=== PATIENT | male | born 1985 | race African-American/Black ===

== ENCOUNTER 2021-06-29 17:34 | Emergency (ER) | payer SELFPAY ==
--- OUTSIDE RECORDS SUMMARY | 2021-06-29 17:38 | XMS REPORT | Continuity of Care Document ---
:1985 Author Organization [facility] t Address [facility] [address] [place] [address] Care Team Providers Name Role Phone Unavailable Unavailable Unavailable Problems Condition Condition Condition Status Onset Resolution Last Treating Co mments Source Name Details Category Date Date Treatment Clinician Date Strain of Strain of Problem Active [facility] neck Neck 6-02 da muscle Muscle 00:00: Medical 00 Group Allergies, Adverse Reactions, Alerts This patient has no known allergies or adverse reactions. Social History Smoking Status Start Date Stop Date Source Former Smoker [facility] Medications Ordered Filled Start Stop Current Ordering Indication Dosage Frequency Signature Comments Components Source Medication Medication Date Date Medication? Clinician (SIG) Name Name Augmentin Augmentin No 1 Q12H Augmentin [facility] 875 mg-125 875 mg-125 875 mg-125 da mg tablet mg tablet mg tablet Medical Take 1 Take 1 Take 1 Group tablet tablet tablet every 12 every 12 every 12 hours by hours by hours by oral route oral route oral route for 10 for 10 for 10 days. take days. take days. take with food with food with food cyclobenzap cyclobenzap No cyclobenza [facility] rine 10 mg rine 10 mg carlos 10 da tablet TAKE tablet TAKE mg tablet Medical 1 TABLET BY 1 TABLET BY TAKE 1 Group MOUTH THREE MOUTH THREE TABLET BY TIMES DAILY TIMES DAILY MOUTH NEEDED NEEDED THREE TIMES DAILY NEEDED diclofenac diclofenac No diclofenac [facility] sodium 75 sodium 75 sodium 75 da mg mg mg Medical tablet,andrea tablet,andrea tablet,del Group yed release yed release ayed TAKE 1 TAKE 1 release TABLET BY TABLET BY TAKE 1 MOUTH TWICE MOUTH TWICE TABLET BY DAILY DAILY MOUTH TWICE DAILY mupirocin 2 mupirocin 2 No mupirocin [facility] % topical % topical 2 % da ointment ointment topical Medi marquita APPLY A APPLY A ointment Group SMALL SMALL APPLY A AMOUNT TO AMOUNT TO SMALL THE THE AMOUNT TO AFFECTED AFFECTED THE AREA BY AREA BY AFFECTED TOPICAL TOPICAL AREA BY ROUTE 2 ROUTE 2 TOPICAL TIMES PER TIMES PER ROUTE 2 DAY DAY TIMES PER DAY naproxen naproxen No naproxen [facility] agor 500 mg 500 mg 500 mg da tablet TAKE tablet TAKE tablet Medical 1 TABLET BY 1 TABLET BY TAKE 1 Group MOUTH TWICE MOUTH TWICE TABLET BY DAILY FOR 5 DAILY FOR 5 MOUTH DAYS DAYS TWICE DAILY FOR 5 DAYS Immunizations Ordered Immunization Filled Immunization Date Status Commen Source Name Name Hep A, adult Hep A, adult 2019-08-22 Completed [facility] 12:33:00 [facility] Hep A, adult Hep A, adult 2018-12-20 Completed [facility] 10:30:00 [facility] Tdap Tdap 2018-12-20 Completed [facility] 10:30:00 [facility] Vital Signs Vital Name Observation Time Observation Value Comments Source BP Diastolic 2021-06-13 00:00:00 96 mm[Hg] [facility] Height 2021-06-13 00:00:00 70 [in_i] [facility] BMI (Body Mass 2021-06-13 00:00:00 36.7 kg/m2 [facility] BP Systolic 2021-06-13 00:00:00 147 mm[Hg] [facility] Body Weight 2021-06-13 00:00:00 4096 [oz_av] [facility] BP Diastolic 2021-05-12 00:00:00 87 mm[Hg] [facility] Height 2021-05-12 00:00:00 70 [in_i] [facility] BMI (Body Mass 2021-05-12 00:00:00 36.7 kg/m2 [facility] BP Systolic 2021-05-12 00:00:00 129 mm[Hg] [facility] Body Weight 2021-05-12 00:00:00 4096 [oz_av] [facility] BP Diastolic 2021-04-30 00:00:00 88 mm[Hg] [facility] Height 2021-04-30 00:00:00 70 [in_i] [facility] BMI (Body Mass 2021-04-30 00:00:00 36.7 kg/m2 [facility] BP Systolic 2021-04-30 00:00:00 130 mm[Hg] [facility] Body Weight 2021-04-30 00:00:00 4096 [oz_av] [facility] BP Diastolic 2021-04-15 00:00:00 89 mm[Hg] [facility] Height 2021-04-15 00:00:00 70 [in_i] [facility] BMI (Body Mass 2021-04-15 00:00:00 36 kg/m2 [facility] BP Systolic 2021-04-15 00:00:00 138 mm[Hg] [facility] Body Weight 2021-04-15 00:00:00 4011.2 [oz_av] [facility] BP Diastolic 2021-03-26 00:00:00 89 mm[Hg] [facility] Height 2021-03-26 00:00:00 70 [in_i] [facility] BMI (Body Mass 2021-03-26 00:00:00 35.9 kg/m2 [facility] BP Systolic 2021-03-26 00:00:00 130 mm[Hg] [facility] Body Weight 2021-03-26 00:00:00 4000 [oz_av] [facility] BMI (Body Mass 2021-03-21 00:00:00 36.3 kg/m2 [facility] BP Systolic 2021-03-21 00:00:00 148 mm[Hg] [facility] Body Weight 2021-03-21 00:00:00 4050 [oz_av] [facility] BP Diastolic 2021-03-21 00:00:00 98 mm[Hg] [facility] Height 2021-03-21 00:00:00 70 [in_i] [facility] Procedures Procedure Date / Time Performing Clinician Source Performed XR, toe(s), 2 or more 2021-06-13 00:00:00 [facility] field nurse [facility] unlisted imaging order 2021-05-12 00:00:00 [facility] Should[facility] Plan of Care Planned Activity Planned Date Details Comments Source Diagnostic Test 2021-06-13 uric acid, serum [facility] Pending 00:00:00 or plasma [code = Group uric acid, serum or plasma] Encounters Start End Encounter Admission Attending Care Care Encounter Source Date/Time Date/Time Type Type Clinicians Facility Department ID 2021-06-13 2021-06-13 Chikis BAEZA [place] - [id number] [facility] 00:00:00 00:00:00 Discovery Esther Tony-C: [address] [facility] [place] [facility] [place] - [address], [facility] [place] [address] , Ph. 2021-05-12 2021-05-12 Chikis BAEZA [place] - [id number] M [facility] 00:00:00 00:00:00 Discovery brianna Tony PA-C: [facility] [address], [facility] [address] , Ph. 2021-04-30 2021-04-30 Elder BAEZA [place] - [id number] [facility] 00:00:00 00:00:00 [facility] En[facility] [address] [address] , Ph. 2021-04-15 2021-04-15 Elder BAEZA [place] - [id number] [facility] 00:00:00 00:00:00 MD Enoc: [facility] [address], [facility] [address] , Ph. 2021-03-26 2021-03-26 Elder BAE[place] - [id number] [facility] 00:00:00 00:00:00 MD Enoc: [facility] [address], [facility] [place] [address] , Ph. 2021-03-21 2021-03-21 Karis [facility] [place] - [id number] [facility] 00:00:00 00:00:00 Discovery brianna Carlos DIAGNOSTIC TECH-C: [address] [place] [address] - [address], [facility] [place] [address] , Ph. 2019-08-22 2019-08-22 Maikel [facility] [place] - [id number] M [facility] 00:00:00 00:00:00 Discovery brianna Sheets PA: [address] [place] [address] - [address], [facility] [place] [address] , Ph. 2018-12-20 2018-12-20 Katey [facility] [place] - [id number] M [facility] 00:00:00 00:00:00 Discovery brianna Ni [employer]: [address] [place] [address] - [address], [facility] [place] [place] [address] , Ph. Results This patient has no known results.
[2021-06-29] MEDS ORDERED: LIDOCAINE 1% W/EPI 1:100,000 MDV 20 ML VIAL ONE (20:10)
[2021-06-29] MEDS ORDERED: HYDROCODONE/APAP 7.5/325 MG TAB ONE (20:10)
[2021-06-29] MEDS ORDERED: BUPIVACAINE 0.5% PF 10 ML VIAL ONE (20:10)
--- NOTE | 2021-06-29 20:36 | EDPHYS ---
Physician Documentation [facility] Name: Morro Medel Age: 36 yrs Sex: Male : 1985 Arrival Date: 06/29/2021 Time: 17:37 Bed 27 Private MD: ED Physician Marko Sainz HPI: 06/29 19:40 This 36 yrs old Black Male presents to ER via Ambulatory with complaints of Abscess. cp 19:40 The patient presents with an abscess of the right arm axilla. Description: fluctuant, cp swollen, tense. Onset: The symptoms/episode began/occurred 3 day(s) ago. 19:40 Associated signs and symptoms: Pertinent negatives: discharge, drainage, fever. cp Historical: - Allergies: 18:12 No Known Allergies; aa5 - PMHx: 18:12 None; aa5 - PSHx: 18:12 Appendectomy; aa5 - Immunization history:: Client reports receiving the 1st dose of the Covid vaccine. - Social history:: Smoking status: Patient denies any tobacco usage or history of. ROS: 19:45 Constitutional: Negative for body aches, chills, fever, poor PO intake. cp 19:45 Eyes: Negative for injury, pain, redness, and discharge. cp 19:45 Respiratory: Negative for cough, shortness of breath, wheezing. 19:45 Skin: Positive for abscess, of the right arm axilla. Exam: 19:50 Constitutional: The patient appears in no acute distress, alert, awake, non-toxic, well cp developed, well nourished, uncomfortable. 19:50 Head/Face: Normocephalic, atraumatic. cp 19:50 Chest/axilla: Axilla: abscess, that is moderate in size, of the right axilla, with tenderness, fluctuant. 19:50 Cardiovascular: Rate: normal, Rhythm: regular. 19:50 Respiratory: the patient does not display signs of respiratory distress, Respirations: normal, no use of accessory muscles, no retractions, labored breathing, is not present. 19:50 Neuro: Orientation: to person, place \T\ time. Mentation: is normal. Vital Signs: 18:13 BP 134 / 89; Pulse 72; Resp 18 S; Temp 97.7(TE); Pulse Ox 100% on R/A; Weight 108.86 kg aa5 (R); Height 5 ft. 10 in. (177.80 cm) (R); 20:54 BP 128 / 79; Pulse 84; Resp 18; Pulse Ox 100% on R/A; Pain 0/10; ms4 18:13 Body Mass Index 34.44 (108.86 kg, 177.80 cm) aa5 MDM: 19:20 Patient medically screened. cp 20:35 Data reviewed: vital signs, nurses notes. cp 20:35 Counseling: I had a detailed discussion with the patient and/or guardian regarding: the cp historical points, exam findings, and any diagnostic results supporting the discharge/admit diagnosis, the need for outpatient follow up, a general surgeon, to return to the emergency department if symptoms worsen or persist or if there are any questions or concerns that arise at home. Response to treatment: the patient's symptoms have markedly improved after treatment, and as a result, I will discharge patient. 06/29 19:34 Order name: I\T\D Setup; Complete Time: 19:39 cp 06/29 20:34 Order name: Wound dressing; Complete Time: 20:54 cp Administered Medications: 19:39 Drug: Lidocaine-Epinephrine -1%: (1:100,000) 10 ml Volume: 20 ml; Route: Infiltration; ms4 19:39 Drug: Marcaine (bupivacaine) (0.5 %) 10 ml Volume: 10 ml; Route: Infiltration; ms4 19:54 Drug: Hydrocodone-Acetaminophen (7.5 mg-325 mg) 1 tabs Route: PO; ms4 20:54 Drug: Clindamycin 900 mg Route: IM; Site: left ventrogluteal; ms4 20:54 Drug: Bactrim (trimethoprim-sulfamethoxazole) (160 mg-800 mg (DS) 2 tabs Route: PO; ms4 Disposition: 06/30 07:40 Co-signature as Attending Physician, Marko Sainz MD. mh7 Disposition Summary: 06/29/21 20:36 Discharge Ordered Location: Home cp Problem: new cp Symptoms: have improved cp Condition: Stable cp Diagnosis - Cutaneous abscess of right axilla - right arm cp Followup: cp - With: Isai Romeo MD - When: 1 - 2 days - Reason: Recheck today's complaints Discharge Instructions: - Discharge Summary Sheet cp - Skin Abscess cp - Incision and Drainage cp Forms: - Medication Reconciliation Form cp - Thank You Letter cp - Antibiotic Education cp - Prescription Opioid Use cp Prescriptions: - Clindamycin HCl 300 mg Oral Capsule - take 1 capsule by ORAL route every 6 hours for 10 days; 40 capsule; Refills: 0, cp Product Selection Permitted - Bactrim DS 800-160 mg Oral Tablet - take 1 tablet by ORAL route every 12 hours for 10 days; 20 tablet; Refills: 0, cp Product Selection Permitted - Tramadol 50 mg Oral Tablet - take 1 tablet by ORAL route every 8 hours as needed; 12 tablet; Refills: 0, cp Product Selection Permitted Signatures: Jyothi Olsen RN RN aa5 Juliocesar Coker PA PA Marko Rabago MD MD mh7 Umu Fitzgerald RN RN ms4
--- NOTE | 2021-06-29 20:36 | ER ---
Nurse's Notes [facility] Name: Morro Medel Age: 36 yrs Sex: Male : 1985 Arrival Date: 06/29/2021 Time: 17:37 Bed 27 Private MD: Diagnosis: Cutaneous abscess of right axilla-right arm Presentation: 06/29 18:13 Chief complaint: Patient states: abscess to right axillae that began a few days ago. aa5 Coronavirus screen: At this time, the client does not indicate any symptoms associated with coronavirus-19. Ebola Screen: Patient negative for fever greater than or equal to 101.5 degrees Fahrenheit, and additional compatible Ebola Virus Disease symptoms. Initial Sepsis Screen: Does the patient meet any 2 criteria? No. Patient's initial sepsis screen is negative. Does the patient have a suspected source of infection? No. Patient's initial sepsis screen is negative. Risk Assessment: Do you want to hurt yourself or someone else? Patient reports no desire to harm self or others. Onset of symptoms was June 2021. 18:13 Method Of Arrival: Ambulatory aa5 18:13 Acuity: NORM 4 aa5 Triage Assessment: 18:15 General: Appears in no apparent distress. uncomfortable, Behavior is calm, cooperative, bp appropriate for age. Pain: Complains of pain in right axilla. EENT: No deficits noted. Neuro: No deficits noted. Cardiovascular: No deficits noted. Respiratory: No deficits noted. GI: No signs and/or symptoms were reported involving the gastrointestinal system. : No signs and/or symptoms were reported regarding the genitourinary system. Derm: Abscess located on right axilla. Musculoskeletal: No deficits noted. Historical: - Allergies: 18:12 No Known Allergies; aa5 - PMHx: 18:12 None; aa5 - PSHx: 18:12 Appendectomy; aa5 - Immunization history:: Client reports receiving the 1st dose of the Covid vaccine. - Social history:: Smoking status: Patient denies any tobacco usage or history of. Screenin:15 Abuse screen: Denies threats or abuse. Denies injuries from another. Nutritional bp screening: No deficits noted. Tuberculosis screening: No symptoms or risk factors identified. Fall Risk None identified. Assessment: 18:15 General: SEE TRIAGE NOTE. bp Vital Signs: 18:13 BP 134 / 89; Pulse 72; Resp 18 S; Temp 97.7(TE); Pulse Ox 100% on R/A; Weight 108.86 kg aa5 (R); Height 5 ft. 10 in. (177.80 cm) (R); 20:54 BP 128 / 79; Pulse 84; Resp 18; Pulse Ox 100% on R/A; Pain 0/10; ms4 18:13 Body Mass Index 34.44 (108.86 kg, 177.80 cm) aa5 ED Course: 17:37 Patient arrived in ED. mr 18:12 Arm band placed on. aa5 18:14 Triage completed. aa5 18:15 Patient has correct armband on for positive identification. Bed in low position. Call bp light in reach. Side rails up X 1. 18:27 Judah Hartmann, JORGE L is Primary Nurse. bp 19:17 Juliocesar Coker PA is PHCP. cp 19:17 Marko Sainz MD is Attending Physician. cp 20:35 Isai Romeo MD is Referral Physician. cp 20:55 No provider procedures requiring assistance completed. Patient did not have IV access ms4 during this emergency room visit. Administered Medications: 19:39 Drug: Lidocaine-Epinephrine -1%: (1:100,000) 10 ml Volume: 20 ml; Route: Infiltration; ms4 19:39 Drug: Marcaine (bupivacaine) (0.5 %) 10 ml Volume: 10 ml; Route: Infiltration; ms4 19:54 Drug: Hydrocodone-Acetaminophen (7.5 mg-325 mg) 1 tabs Route: PO; ms4 20:54 Drug: Clindamycin 900 mg Route: IM; Site: left ventrogluteal; ms4 20:54 Drug: Bactrim (trimethoprim-sulfamethoxazole) (160 mg-800 mg (DS) 2 tabs Route: PO; ms4 Outcome: 20:36 Discharge ordered by . cp 20:55 Discharged to home ms4 20:55 Condition: stable 20:55 Discharge instructions given to patient. 20:55 Patient left the ED. ms4 Signatures: Huyen HahnJyothi RN RN aa5 Juliocesar Coker PA PA cp Judah Hartmann RN RN bp Umu Fitzgerald RN RN ms4
[2021-06-29 21:00] VITALS: TEMP 97.7; O2SAT 100
[2021-06-29 21:02] VITALS: BP 128/79
[2021-06-29] MEDS ORDERED: CLINDAMYCIN IV 150 MG/ML (4 mL) VIAL ONE (21:07)
[2021-06-29] MEDS ORDERED: SMZ./TMP. 800/160 MG TABLET ONE (21:07)
== END 2021-06-29 20:55 | disposition home or self-care (01) ==
LOC: ER 17:34
DX: L02.411 Cutaneous abscess of right axilla (principal)
CPT/HCPCS: 96372; 99283; S0077